=== PATIENT | female | born 1960 ===

== ENCOUNTER 2018-03-17 12:34 | Emergency (ER) | payer OTHER ==
[2018-03-17 12:41] VITALS: BMI 27.3
[2018-03-17 12:43] VITALS: PULSE 60
--- NOTE | 2018-03-17 14:14 | C.PDOC ---
History Of Present Illness 57 y/o female c/o diffuse body itching x 4 days. denies any new suubstances. c/o swelling to eyes. rash to chest and thighs, using vinegar to clean skin on thighs. pt taking benadryl at bedtime with some relief. no difficulty breathing or swallowing. no lip or tongue swelling. Time Seen by Provider: 03/17/18 12:52 Chief Complaint (Nursing): Abnormal Skin Integrity Onset/Duration Of Symptoms: Days (4) Current Symptoms Are (Timing): Still Present Location Of Injury: Anterior: Chest, Thigh Past Medical History Reviewed: Historical Data, Nursing Documentation, Vital Signs Vital Signs: Last Vital Signs Temp 98.6 F 03/17/18 12:41 Pulse 60 03/17/18 12:41 Resp 20 03/17/18 12:41 BP 127/77 03/17/18 12:41 Pulse Ox 99 03/17/18 12:41 - Medical History PMH: No Chronic Diseases Surgical History: No Surg Hx Family History: States: No Known Family Hx - Social History Hx Alcohol Use: No Hx Substance Use: No - Immunization History Hx Tetanus Toxoid Vaccination: No Hx Influenza Vaccination: No Hx Pneumococcal Vaccination: No Review Of Systems Eyes: Positive for: Other (swelling) Skin: Positive for: Other (diffuse itching) Physical Exam - Physical Exam Appears: Non-toxic, No Acute Distress Skin: Warm, Dry, Rash (papilar rash around neck and, urticaria to upper thighs with erythematous are to the inner thighs) Head: Atraumatic, Normacephalic Tongue: Normal Appearing, No Swelling Lips: Normal Appearing, No Swelling Throat: Normal, No Erythema Neck: Normal, Supple Chest: Symmetrical, No Tenderness Cardiovascular: Rhythm Regular, No Murmur Respiratory: Normal Breath Sounds, No Rales, No Rhonchi, No Wheezing Extremity: Normal ROM Neurological/Psych: Oriented x3, Normal Speech, Normal Cognition ED Course And Treatment O2 Sat by Pulse Oximetry: 99 (RA) Pulse Ox Interpretation: Normal Medical Decision Making Medical Decision Making: no clear source ofallergice reaction- op t with some lild swelling near right eye, uritcaria to thighs, d/c with presndone, benadryl and pepcid Disposition Counseled Patient/Family Regarding: Diagnosis, Need For Followup, Rx Given - Disposition Disposition: HOME/ ROUTINE Disposition Time: 14:14 Condition: GOOD Additional Instructions: [place] benadryl segn lo prescrito para los prximos 2 frost; (cada 6 horas), as malgorzata prednisona y pepcid. Cuando regrese al trabajo, tome Bendryl solo en [place] y Claritin lilibeth el da. Simona un seguimiento con schaffer mdico en 1 = 2 frost o en la clnica. Take benadryl as prescribed for next 2 days; (every 6 hours), as well as prednisone and pepcid. When you go back to work, take Bendryl at betime only and Claritin in the daytime. Follow up with your doctor in 1-=2 days or in clinic. 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 - Scribe Statement The provider has reviewed the documentation as recorded by the Scribe (Anupam Griffith)
[2018-03-17 14:34] VITALS: BP 133/75; RESP 18; TEMP 98.1
[2018-03-17 16:09] VITALS: O2SAT 99
== END 2018-03-17 14:34 | disposition home or self-care (01) ==
LOC: C.ER 12:34
DX: L50.9 Urticaria, unspecified (principal)